=== PATIENT | male | born 1985 | race Caucasian/White ===

== ENCOUNTER 2018-08-25 18:57 | Emergency (ER) | payer OTHER, SELFPAY ==
[2018-08-25 18:58] VITALS: BP 117/69; PULSE 90; RESP 16; TEMP 36.7; O2SAT 95; BMI 56.6
--- NOTE | 2018-08-25 19:30 | CT_ITS ---
STUDY: CT ABDOMEN AND PELVIS WITHOUT CONTRAST REASON FOR EXAM: Male, 33 years old. Low back pain. RADIATION DOSAGE (If Supplied By Facility): CTDIvol = ( 7.83 ) mGy, DLP = ( 424.71 ) mGycm TECHNIQUE: Transaxial images were obtained from the dome of the diaphragm to the symphysis pubis without oral contrast, and without intravenous contrast. Sagittal and coronal images were reconstructed. Individualized dose optimization techniques were used for this CT. COMPARISON: None. FINDINGS: The visualized lung bases are unremarkable. The visualized portions of the heart are within normal limits. Normal liver. Normal gallbladder and extrahepatic biliary system. Normal spleen. Normal pancreas. Normal bilateral adrenal glands. Normal right kidney. Normal left kidney. Evaluation of the GI tract is limited by absence of oral contrast. Cannot exclude stomach wall thickening. No dilated loops of bowel or evidence for obstruction. Cannot exclude segmental thickening of the wang of the small or large bowel. Cannot exclude enteritis or colitis. Moderate diffuse fecal retention. Appendix within normal limits. Normal abdominal aorta. Normal inferior vena cava. Normal retroperitoneum. Normal urinary bladder. There is enlargement of the prostate gland. There is a small umbilical hernia containing fat. Normal osseous structures. CT/Abdomen/Pelvis without Cont IMPRESSION: Normal unenhanced CT of the abdomen and pelvis. Electronically Signed: Jose Carlos Rehman MD at 20:10 EST , Service support ,
--- NOTE | 2018-08-25 19:31 | US_ITS ---
STUDY: SCROTUM ULTRASOUND REASON FOR EXAM: Male, 33 years old. Pain. TECHNIQUE: Ultrasound evaluation of the scrotum was performed with color Doppler and static chaidez-scale imaging. COMPARISON: None. FINDINGS: RIGHT TESTICLE INTRATESTICULAR: There is a normal size of the right testicle. The right testicle measures 4.4 x 2.9 x 2.1 cm. There is a homogenous echotexture. There is normal arterial and normal venous vascularity. There is no demonstrated right testicular mass or cyst. EXTRATESTICULAR: The epididymis is enlarged. The epididymis head measures 1.9 cm. There is increased (hyperemic) vascularity of the epididymis. There is a 1.2 cm epididymal cyst. There is a large hydrocele with internal debris. There is no demonstrated varicocele. There is no demonstrated extratesticular mass or cyst. LEFT TESTICLE INTRATESTICULAR: There is a normal size of the left testicle. The left testicle measures 4.8 x 3.1 x 2.2 cm. There is a homogenous echotexture. There is normal arterial and normal venous vascularity. There is no demonstrated left testicular mass or cyst. EXTRATESTICULAR: The epididymis is normal in size. The epididymis head measures 1.0 cm. There is normal vascularity of the epididymis. There is no demonstrated epididymal cystic structure. There is no demonstrated hydrocele. There is no demonstrated varicocele. There is no demonstrated extratesticular mass or cyst. US/Testicular with Arterial Flow IMPRESSION: Normal bilateral testicles. Findings suggestive of right epididymitis. Large right hydrocele. Electronically Signed: Jose Carlos Rehman MD at 21:07 EST , Service support ,
[2018-08-25] MEDS: Morphine 4 MG/ML Syringe IV (19:44)
[2018-08-25] MEDS: Ondansetron 4 MG/2 ML Vial IV (19:45)
[2018-08-25 19:55] LABS: Absolute Lymphocyte Count 1.63 X10^3/ul (0.83-4.51); Absolute Neutrophil Count 12.5 X10^3/uL (2.0-7.7); Basophil# 0.04 X10^3/uL; Basophil% 0.3 % (0-1); Eosinophil# 0.05 X10^3/uL; Eosinophils% 0.3 % (0-5); Hematocrit 43.4 % (40-54); Hemoglobin 15.2 g/dl (13.0-16.5); Lymphocyte # 1.63 X10^3/ul (4.0); Lymphocyte % 10.6 % (19-41); Mean Corpuscular Hgb 31.9 pg (27.0-32.0); Mean Platelet Vol. 10.6 fl (6.2-12.0); Monocyte# 1.13 X10^3/uL; Monocyte% 7.3 % (0-10); Neutrophil # 12.53 X10^3/uL (2.7-7.7); Neutrophil % 81.3 % (47-70); POSITIVE COUNT NO; POSITIVE DIFFERENTIAL NO; POSITIVE MORPHOLOGY NO; Platelet Count 239 K/mm3 (150-450); RBC Distribution Width CV 12.3 % (11.6-14.6); RBC Distribution Width SD 40.4 fl (35.1-43.9); Red Blood Count 4.77 M/mm3 (4.6-6.2); White Blood Count 15.4 K/mm3 (4.4-11.0)
[2018-08-25 20:06] LABS: Anion Gap 5 (5-15); BUN 18 mg/dL (7-18); Calcium,Total 8.6 mg/dL (8.5-10.1); Chloride 106 mmol/L (98-107); Creatinine, Serum 0.95 mg/dL (0.70-1.30); EST Glomerular Filtration Rate 99 mL/min (>60); Est Glom Filt Rate - Afr Amer 119 mL/min (>60); Estimated Creatinine Clearance 130.99 ml/min; Glucose 89 mg/dL (74-106); Potassium 3.8 mmol/L (3.5-5.1); Sodium Level 138 mmol/L (136-145)
--- NOTE | 2018-08-25 20:25 | ED.DCSUM_ITS ---
- ER Visit Summary Date of Service: 08/25/18 Chief Complaint: Right flank pain History of Present Illness: The patient is a 33 M presenting with right flank pain. Patient states this started approximately 2 days ago. He has pain in the right lower back which radiates to the right lower quadrant. States it also occasionally radiates to his right testicle. He states he frequently does jujitsu but does not recall specific injury. He denies fever. He denies dysuria or hematuria, complains of urinary frequency. Physical Examination: Vitals are stable. Patient is afebrile. Alert no acute distress. HEENT exam is unremarkable. Neck is supple. Lungs are clear and equal bilaterally. Heart is regular rate and rhythm. Abdomen is soft right lower quadrant tenderness with no rebound or guarding Back: Right CVA tenderness : Right testicular tenderness with normal lie, no rash or discharge Extremities are unremarkable. Skin is warm and dry. Remainder of exam is unremarkable. Emergency Department Course and Treatment: CBC, chemistries unremarkable other than white count 15.4. Patient is given morphine, Zofran IV. CT of the abdomen pelvis shows no acute process. Testicular ultrasound shows normal bilateral testicles. Findings suggestive of right epididymitis. Large right hydrocele. Urinalysis shows over 100 white blood cells, 25-50 red blood cells. Urine culture was sent. Patient was given Levaquin. He states he has no concern for possible STD. He is advised to follow-up with PCP and urology. Advised return to ED if worsening complaints. Disposition: Discharge home Impression: Epididymitis This note was generated with [employer] dictation software. It may contain incorrect words, spelling, and punctuation that were not noted in review of the chart prior to signing ED Disposition - Plan for ED Patient: Instructions: ED Epididymitis Prescriptions: levoFLOXacin tablet [Levaquin] 500 mg PO DAILY #10 tablet Referrals: Flako Hsieh MD [Primary Care Provider] - Prakash Rivera MD [STAFF PHYSICIAN] -
[2018-08-25 21:02] LABS: Mucous, Urine 0 SEEN /hpf (<or=2+)
[2018-08-25 21:08] LABS: Color, Urine Yellow (Yellow); Glucose, Dipstick Normal (Normal); Ketone-Dipstick 50 mg/dl (Negative); Leukocyte Esterase-Dipstick 500 /ul (Negative); Nitrite-Dipstick Negative (Negative); Occult Blood-Urine 150 /ul (Negative); Protein-Dipstick 30 mg/dl (Negative); Specific Gravity, Urine 1.015 (1.002-1.030); Urine Bilirubin Dipstick Negative (Negative); Urine Clarity Cloudy (Clear); Urine Urobilinogen 1 mg/dl (Normal)
[2018-08-25 21:10] LABS: Bacteria RARE /hpf (None Seen); Red Blood Cells-Urine 25-50 SEEN /hpf (0-5); Squamous Epithelial Cells - UA 0-5 SEEN /hpf (0-5); White Blood Cells >100 SEEN /hpf (0-5)
[2018-08-25 21:11] LABS: Amorphous Sediment 1+ URATE
--- NOTE | 2018-08-25 21:41 | ED.DEP ---
ED Disposition - Plan for ED Patient: Instructions: ED Epididymitis Prescriptions: levoFLOXacin tablet [Levaquin] 500 mg PO DAILY #10 tablet Referrals: Flako Hsieh MD [Primary Care Provider] -
--- NOTE | 2018-08-25 21:44 | ED.DEP ---
ED Disposition - Plan for ED Patient: Instructions: ED Epididymitis Prescriptions: levoFLOXacin tablet [Levaquin] 500 mg PO DAILY #10 tablet Referrals: Flako Hsieh MD [Primary Care Provider] - Prakash Rivera MD [STAFF PHYSICIAN] -
[2018-08-25] MEDS: levoFLOXacin 500 MG Tablet PO (21:49)
[2018-08-25 21:51] VITALS: BP 113/66; BP 113/68; PULSE 78; RESP 16; O2SAT 100
[2018-08-25 22:13] VITALS: BP 166/43; PULSE 94; RESP 20; O2SAT 94
[2018-08-26 01:13] LABS: Chlamydia Trachomatis by PCR Negative (Negative); Neisserai gonorrhoeae by PCR Negative (Negative); Probe Check PASS; Sample Adequacy Control PASS; Specimen Processing Control PASS
== END 2018-08-25 22:14 | disposition home or self-care (01) ==
LOC: ED 19:40
PROVIDERS: Emergency Provider Emergency Medicine; Family Provider Family Medicine; PCP Family Medicine
DX: N45.1 Epididymitis (principal); N43.3 Hydrocele, unspecified; R35.0 Frequency of micturition; R11.0 Nausea
CPT/HCPCS: 74176; 76870; 80048; 81001; 85025; 87086; 87491; 87591; 93976; 96374; 96375; 99283; A4216; J2405